=== PATIENT | female | born 1985 | race Caucasian/White ===

== ENCOUNTER → 2024-11-08 09:50 | Outpatient (REF) | payer BC, SELFPAY | LOC: EMG 09:50 | PROVIDERS: ATTENDING PHYSICIAN Physician Assistant Surgical; FAMILY PHYSICIAN Internal Medicine | DX: G56.40 Causalgia of unspecified upper limb (principal); R20.0 Anesthesia of skin | CPT/HCPCS: 95886; 95911 ==